=== PATIENT | female | born 1965 | race Caucasian/White ===

== ENCOUNTER 2016-05-25 06:55 | Emergency (ER) | payer SELFPAY ==
[~2016-05-25] VITALS: Ht 170.2 cm; Wt 93.0 kg
[~2016-05-25 06:55] MED LIST: LISI1TAB13
--- NOTE | 2016-05-25 07:15 | NUR ---
BB FAMILY FROM HOME FOR RIGHT SHOULDER DISLOCATED WHILE TAKING A SHOWER. PT AAO X4, AMB WITH STEADY GAIT. RIGHT SHOULDER PAIN /. PT STATES THIS HAS HAPPENED BEFORE BUT NO FOLLOWUP. INSTRUCTED PATIENT IMPORTANCE OF PHYSICAL THERAPY. PENDING MD CRATY. DAUGHTER AT BEDSIDE.
--- NOTE | 2016-05-25 07:16 | NUR ---
IV STARTED LEFT HAND 20G.
[2016-05-25] MEDS ORDERED: ONDANSETRON HCL/PF 4 MG/2 ML VIAL ONE (07:21)
[2016-05-25] MEDS ORDERED: IV NS 0.9% 1,000 ML ONE (07:21)
[2016-05-25] MEDS ORDERED: IV SET PRIMARY 1 EA INFUS.SET MC ONE (07:21)
[2016-05-25] MEDS ORDERED: MORPHINE SULFATE INJ 2 MG/ML DISP.SYRIN ONE ×2 (07:21→07:52)
[2016-05-25] MEDS ORDERED: PROPOFOL 20 ML IV ONE ×2 (07:21→08:01)
[2016-05-25] MEDS ORDERED: ONDANSETRON HCL/PF 4 MG/2 ML VIAL IV ONE (07:30)
[2016-05-25] MEDS ORDERED: MORPHINE SULFATE INJ 2 MG/ML DISP.SYRIN IV ONE ×2 (07:30→08:00)
[2016-05-25] MEDS ORDERED: IV NS 0.9% 1,000 ML BAG IV ONE (07:30)
[2016-05-25] MEDS ORDERED: PROPOFOL 200 MG/20 ML VIAL IV ONE (07:30)
--- NOTE | 2016-05-25 07:30 | NUR ---
PT SIGNED CONSENT
--- NOTE | 2016-05-25 07:36 | NUR ---
XRAY AT BEDSIDE.
--- NOTE | 2016-05-25 08:20 | NUR ---
CALLED [facility] [phone] ACADEMIC COORDINATOR [phone] ITS FERNY
--- NOTE | 2016-05-25 08:29 | NUR ---
XRAY AT BEDSIDE. SHOULDER BACK INTO PLACE, CONFIRMED BY .
[2016-05-25 08:49] VITALS: BP 118/62
--- NOTE | 2016-05-25 08:50 | NUR ---
Patient discharged to home in stable condition. Written and verbal after care instructions given. Patient verbalizes understanding of instruction.IV removed. Catheter intact and site benign. Pressure and 4x4 applied to site. No bleeding noted. prescriptions given. no further complaints. leaving via car with daughter. ambulatory with steady gait.
== END 2016-05-25 08:50 | disposition home or self-care (01) ==
LOC: ER 06:57
DX: M24.411 Recurrent dislocation, right shoulder (principal); I10 Essential (primary) hypertension; F10.10 Alcohol abuse, uncomplicated; X58.XXXA Exposure to other specified factors, initial encounter; Y93.89 Activity, other specified; Y92.89 Other specified places as the place of occurrence of the external cause; Y99.8 Other external cause status
CPT/HCPCS: 23650; 73020 ×2; 73030; 96360; 96374; 96375; 99152; 99153; 99285; A4606; J2270 ×2; J2405; J2704 ×2; J7030; Z7610

== ENCOUNTER 2016-07-17 18:58 | Inpatient (IN) | payer SELFPAY ==
[~2016-07-17] VITALS: Ht 172.7 cm; Wt 93.4 kg
--- NOTE | 2016-07-17 19:05 | NUR ---
PT A/OX4 BREATHING EFFORTLESSLY ON ROOM AIR, PT STATES SHE WA REACHING FOR SOMETHING AND FELT HER RIGHT SHOULDER POP OUT, PT ON MONITOR, FAMILY AT BEDSIDE, PT HAS BRUISING TO HER UPPER LEFT ARM, IV PLACED MD MADE AWARE WILL CONTINUE TO MONITOR.
[2016-07-17] MEDS ORDERED: MORPHINE SULFATE INJ 4 MG/ML DISP.SYRIN ONE (19:11)
[2016-07-17] MEDS ORDERED: ONDANSETRON HCL/PF 4 MG/2 ML VIAL ONE (19:11)
--- NOTE | 2016-07-17 19:14 | NUR ---
Theresa mercado in [facility] - 07/17/16 at 1919 by JUAN CALLED WILL TRIVEDI MD
[2016-07-17] MEDS ORDERED: MORPHINE SULFATE INJ 2 MG/ML DISP.SYRIN IV ONE (19:30)
[2016-07-17] MEDS ORDERED: ONDANSETRON HCL/PF - ER 4 MG/2 ML VIAL IV ONE (19:30)
[2016-07-17] MEDS ORDERED: PROPOFOL 200 MG/20 ML VIAL IV ONE ×2 (20:00→21:30)
[2016-07-17] MEDS ORDERED: PROPOFOL 20 ML IV ONE ×2 (20:10→20:54)
--- NOTE | 2016-07-17 20:32 | NUR ---
CONSCIOUS SEDATION WAS PREFORMED BY DR GOLD,, RT WAS AT BEDSIDE, PT IS A/XO4 BREATHING EFFORTLESS ON ROOM AIR, XRAY IS AT BEDSIDE TO REPEAT XRAY WILL CONTINUE TO MONITOR.
--- NOTE | 2016-07-17 21:14 | NUR ---
PAGED MANAGER RETIREMENT RAYNE SANABRIA FOR CONSULT
--- NOTE | 2016-07-17 21:19 | NUR ---
PT SHOULDER WAS STILL OUT AFTER XRAY WAS DONE, ANOTHER CONCIOUS SEDATION DONE WITH RT AND MD AT BEDSIDE, SHOULDER WAS NOT SUCCESFULLY PUT BACK IN, PT A/OX4 BREATHING EFFORTLESSLY ON ROOM AIR, VSS WILL CONTINUE TO MONITOR.
[2016-07-17] MEDS ORDERED: HYDROMORPHONE 1 MG/1 ML DISP.SYRIN IV ONE (22:30)
[2016-07-17] MEDS ORDERED: HYDROMORPHONE 1 MG/1 ML DISP.SYRIN ONE (22:46)
--- NOTE | 2016-07-17 22:52 | NUR ---
PT TRANSPORTED TO MS BED WITHOUT INCIDENT
[2016-07-17 22:59] LABS: BASOPHILS % (AUTO) 0.5 % (0.0-2.0); EOSINOPHILS % (AUTO) 0.1 % (0.0-6.0); HEMATOCRIT 43 % (33-45); HEMOGLOBIN 14.1 g/dL (11.5-14.8); LYMPHOCYTES # (AUTO) 0.9 /CMM (0.8-4.8); LYMPHOCYTES % (AUTO) 11.5 % (20.0-44.0); MEAN CORPUSCULAR HEMOGLOBIN 30 PG (26.0-33.0); MEAN CORPUSCULAR HGB CONC 33 g/dl (31.0-36.0); MEAN CORPUSCULAR VOLUME 92 fL (82-100); MONOCYTES # (AUTO) 0.5 /CMM (0.1-1.30); MONOCYTES % (AUTO) 5.9 % (2.0-12.0); NEUTROPHILS # (AUTO) 6.7 /CMM (1.8-8.9); PLATELET COUNT (AUTO) 280 /CMM (150-450); RDW COEFFICIENT OF VARIATION 13.4 (11.5-15.0); RED BLOOD CELL COUNT(AUTO) 4.68 MIL/uL (4.0-5.2); WHITE BLOOD COUNT (AUTO) 8.1 K/uL (4.3-11.0)
[2016-07-17 23:02] LABS: BILIRUBIN,TOTAL 0.5 mg/dL (0.2-1.0); CREATININE 0.8 mg/dL (0.6-1.3); POTASSIUM 3.4 mmol/L (3.5-5.1); TOTAL PROTEIN, SERUM 8.3 g/dL (6.4-8.2)
[2016-07-17 23:14] LABS: INR 0.89 (0.87-1.13); PROTHROMBIN TIME 9.4 SECS (9.5-12.7)
--- NOTE | 2016-07-17 23:15 | NUR ---
MS RN NOTE ADMITTED 51 YEARS OLD FEMALE PT FROM ER WITH THE DX OF DISLOCATED SHOULDER JOINT BY DR VERMA. A/O X 4, PT C/O PAIN IN RT SHOULDER 09/22. PT RECEIVED PT MED IN ER 1/2 HR AGO.CONTINUE TO MONITOR HER PAIN. H/L IN LT HAND #20 G INTACT AND PATENT. UNABLE TO ASSESS SKIN AT THIS TIME PT DON'T WANT TO BE MOVED OR TOUCHED DUE TO DISCOMFORT. WILL TRY LATER. VSS. ORIENTED THE PT TO HER ROOM. ADMITTING ORDERS CHECKED. CONTINUE TO MONITOR HER.
[2016-07-17] MEDS ORDERED: ACETAMINOPHEN 650 MG/SUPP.RECT RC PRN (23:30)
[2016-07-17] MEDS ORDERED: HYDROMORPHONE INJ 2 MG/ML DISP.SYRIN IV PRN (23:30)
[2016-07-17] MEDS ORDERED: ONDANSETRON HCL/PF 4 MG/2 ML VIAL IVP PRN (23:30)
[2016-07-17 23:31] VITALS: BP 148/82
--- NOTE | 2016-07-18 00:33 | NUR ---
RN PT STILL WITH PAIN 9/10 IN HER R SHOULDER, MD VERMA AT BEDSIDE, INCREASE DILAUDID FROM 0.5 TO 1 MG Q 3HRS PRN STARTING NOW WITH FIRST DOSE.
[2016-07-18] MEDS ORDERED: HYDROMORPHONE 1 MG/1 ML DISP.SYRIN ONE ×3 (00:35→06:46)
--- NOTE | 2016-07-18 00:47 | NUR ---
MS RN NOTE TRIED TO SCAN THE MED MULTIPLE TIMES WITH CHARGE NURSE RENNY BUT UNABLE. PER DR VERMA IT IS OK TO GIVE PAIN MED 1 MG NOW. PT C/O PAIN 09/22 RT SHOULDER, DILAUDID 1 MG IVP GIVEN. CONTINUE TO MONITOR HER.
[2016-07-18] MEDS ORDERED: SECONDARY IV SET 1 EA INFUS.SET MC ONE (00:50)
[2016-07-18] MEDS ORDERED: IV SET PRIMARY PUMP SET 1 EA INFUS.SET MC ONE (00:50)
[2016-07-18] MEDS ORDERED: HYDROMORPHONE INJ 2 MG/ML DISP.SYRIN IV PRN (01:00)
--- NOTE | 2016-07-18 01:00 | NUR ---
MS RN NOTE UNABLE TO SCAN THE IV BAG TRIED MULTIPLE TIMES, VERIFIED WITH CHARGE NURSE EVEN SHE TRIED MULITPLE TIMES. NURSING PREMIUM AUDITOR BROUGHT THE IV BAG TO US.
[2016-07-18] MEDS: Potassium Chloride 20 MEQ in IV D5/0.45 NACL 1,000 ML IV PRN ×2 (01:03→16:07)
--- NOTE | 2016-07-18 01:04 | NUR ---
MS RN NOTE UNABLE TO SCAN THE IV BAG TRIED MULTIPLE TIMES, VERIFIED WITH CHARGE NURSE EVEN SHE TRIED MULITPLE TIMES. NURSING PRACTICE LEAD BROUGHT THE IV BAG TO US.
[2016-07-18] MEDS: HYDROMORPHONE 1 MG/1 ML DISP.SYRIN IV PRN ×7 (03:51→22:43)
[2016-07-18 04:00] VITALS: BP 141/86
--- NOTE | 2016-07-18 06:45 | NUR ---
MS RN NOTE PT IN BED AWAKE. C/O PAIN IN RT SHOULDER 09/22. DILAUDID 1 MG IVP GIVEN. UNABLE TO DO SKIN ASSESSMENT DUE TO PT DON'T WANT TO MOVE AROUND, STATES " I AM IN PAIN ALOT AND I DON'T WANT TO MOVE AT ALL.
--- NOTE | 2016-07-18 07:37 | NUR ---
INITIAL MS RN NOTE RCVD PT AWAKE AND ALERT SHOWING NO S/O DISTRESS, C/O RIGHT SHOULDER PAIN. PT MEDICATED LESS THAN AN HOUR AGO. LEFT HAND #20 C/D/I/PATENT. NO S/O INFILTRATION OR PHLEBITIS OBSERVED. IVF INFUSING. WILL CONTINUE TO MONITOR PT FOR SAFETY AND COMFORT. CALL LIGHT WITHIN REACH. BED IN LOW AND LOCKED POSITION.
[2016-07-18 08:00] VITALS: BP 131/83
--- NOTE | 2016-07-18 08:04 | NUR ---
DRY KILN WORKER NOTE SPOKE WITH TIMOTHY BO FOR DR. RODRIGUEZ PT WILL UNDERGO CLOSED REDUCTION OF RIGHT SHOULDER DISLOCATION. CONSENT OBTAINED. PT TAKEN TO OR FOR PROCEDURE VIA BED WITH RN AND TRANSPORT AT BEDSIDE.
[2016-07-18] MEDS ORDERED: MIDAZOLAM HCL 2 MG/2ML VIAL ONE (08:32)
[2016-07-18 09:30] VITALS: BP 137/87
[2016-07-18] MEDS: PANTOPRAZOLE 40 MG VIAL IV SCH (09:40)
[2016-07-18] MEDS ORDERED: ANESTHESIA TRAY IN PYXIS 1 EA TRAY MC ONE (14:54)
[2016-07-18] MEDS ORDERED: HYDROCODONE/APAP 5/325MG 1 EACH TABLET PO PRN (15:00)
[2016-07-18 16:00] VITALS: BP 117/78
--- NOTE | 2016-07-18 19:30 | NUR ---
ENDING MED-CNC MAINTENANCE MECHANIC NOTE PT REMAINS STABLE, RESTING IN BED SHOWING NO S/O DISTRESS. PAIN MANAGED WITH CURRENT MEDS. PT'S CARE ENDORSED TO PANEL ASSEMBLER RN FOR CONTINUITY OF CARE.
--- NOTE | 2016-07-18 19:36 | NUR ---
MS RN NOTE PT IN BED AWAKE. C/O PAIN IN RT SHOULDER 09/22, DILAUDID 1 MG IVP GIVEN. VSS. NO SOB NOTED. ALSO MOVED THE PT TO DIFFERENT ROOM PER CHARGE NURSE. IVF D5 1/2 NS WITH 20 MEQ KCL INFUSING WELL, NO S/S OF INFILTRATION NOTED AT LT HAND #20 G.ALSO ABLE TO TAKE SKIN PICTURES FOR AREA WHERE PT ABLE TO MOVE. PICTURES PLACED IT IN THE CHART. SIDE RAILS UP X 2 AND CALL LIGHT WITHIN REACH. VSS. CONTINUE TO MONITOR HER.
--- NOTE | 2016-07-18 19:40 | NUR ---
MS RN NOTE RT SHOULDER IMMOBILIZER IN PLACE.
[2016-07-18 20:00] VITALS: BP 139/85
[2016-07-19] MEDS: HYDROMORPHONE 1 MG/1 ML DISP.SYRIN IV PRN ×4 (03:37→15:49)
[2016-07-19] MEDS: Potassium Chloride 20 MEQ in IV D5/0.45 NACL 1,000 ML IV PRN (03:37)
[2016-07-19 04:00] VITALS: BP 125/79
--- NOTE | 2016-07-19 06:44 | NUR ---
MS RN NOTE PT IN BED ASLEEP, EASILY AROUSABLE. NO DISTRESS OR DISCOMFORT NOTED. DENIES PAIN. IVF INFUSING WELL, NO S/S OF INFILTRATION NOTED. SIDE RAILS UP X 2 AND CALL LIGHT WITHIN REACH. WILL ENDORSE TO DAY SHIFT NURSE FOR CONTINUE TO CARE.
--- NOTE | 2016-07-19 07:15 | NUR ---
RN INITIAL NOTE PT RECEIVED IN BED, AWAKE, ALERT, ORIENTED. HAS SHOULDER PAIN AT THIS TIME. DILAUDID GIVEN. RESPIRATIONS ARE EVEN AND UNLABORED. NO S/S OF RESPIRATORY DISTRESS OR SOB. SATING WELL ON ROOM AIR. SKIN IS WARM AND DRY TO TOUCH. LEFT HAND IV SITE FLUSHED, PATENT. DRESSING C/D/I. SAFETY PRECAUTIONS IN PLACE. BED IN LOCKED, LOW POSITIONS WITH TWO SIDE RAILS UP. CALL LIGHT AND BELONGINGS WITHIN EASY REACH. WILL CONTINUE TO MONITOR.
[2016-07-19 08:00] VITALS: BP 133/80
[2016-07-19] MEDS: PANTOPRAZOLE 40 MG VIAL IV SCH (08:02)
[2016-07-19 16:00] VITALS: BP 120/70
--- NOTE | 2016-07-19 18:11 | NUR ---
RN CLOSING NOTE PATIENT DISCHARGED HOME. PAPERWORK DONE. IV SITE DISCONTINUED. DAUGHTER CAME TO PICK HER UP. INFORMED TO FOLLOW UP WITH ORTHO MD REGARDING USE OF IMMOBILIZER AND MEDICATION.
--- NOTE | 2016-07-19 18:45 | NUR ---
RN NOTE PT CALLED FROM HOME REQUESTING A RX FOR PAIN MEDICATION. [facility] ON [address]. PT PHONE # [phone]
== END 2016-07-19 18:05 | disposition home or self-care (01) | DRG 563 ==
LOC: ER 19:00 → MEDSG1 22:37
PROVIDERS: ADMIT Internal Medicine; ATTEND Internal Medicine
PROC: 0RSJXZZ Reposition Right Shoulder Joint, External Approach (ICD-10-PCS; principal; 2016-07-18 08:00)
DX: M24.411 Recurrent dislocation, right shoulder (principal); Z68.31 Body mass index [BMI] 31.0-31.9, adult; E66.9 Obesity, unspecified; E87.6 Hypokalemia; I10 Essential (primary) hypertension
CPT/HCPCS: 36415; 71010-TC; 73020; 73030-TC; 80053-TC; 85025-TC; 85730-TC; 87081-TC; A4565; A4606; C9113; J1170; J2250; J2270; J2405; J2704; J3480; J3490; Z7610

== ENCOUNTER 2016-08-04 21:57 | Emergency (ER) | payer SELFPAY ==
[~2016-08-04] VITALS: Ht 172.7 cm; Wt 92.5 kg
--- NOTE | 2016-08-04 22:10 | NUR ---
PT BIB [facility] FOR ETOH INTOX. PT WAS FOUND IN THE STREET BUT PT TELLS ME SHE WAS AT HOME WHEN 911 WAS CALLED. HER STORY THEN CHANGED STATING SHE CALLED 911 BUT DOES NOT KNOW WHY. PER EMT RAÚL, PT INITIALLY STATED SHE WAS NOT AT HOME WHEN 911 WAS CALLED. DENIES PHYSICAL COMPLAINTS. NAD NOTED. PT SAYING SHE WANTS TO GO HOME. PER MD, PLACE ON 1 POINT RESTRAINT. AMBULATED WITH STAGGERING GAIT. IN ER BED 10 ON MONITOR.
--- NOTE | 2016-08-04 23:03 | NUR ---
PT ATTEMPTED TO LEAVE ER, HAVING SELF-EXTRICATED FROM 1 POINT RESTRAINT. AMBULATORY WITH UNSTEADY GAIT. ASSISTED BACK TO BED AND REPLACED RESTRAINT. PROVIDED WITH WARM BLANKET FOR COMFORT. EXPLAINED PLAN OF CARE TO PT, TO WHICH SHE KEPT SAYING "I NEED TO GO. I NEED TO GO HOME."
--- NOTE | 2016-08-04 23:54 | NUR ---
MULTIPLE ATTEMPTS MADE TO CONTACT PTS "EX" WHO SHE STATES SHE LIVES WITH, NAMED GERARD AT [phone] BY MYSELF ON HOSPITAL PHONE AND PT'S DAUGHTER JAMES WHICH PT USED OWN CELL PHONE TO DO. NAD NOTED. ALL NEEDS ATTENDED TO.
--- NOTE | 2016-08-04 23:56 | NUR ---
REPORT GIVEN TO MAGALY TAFOYA RN FOR RENEE.
--- NOTE | 2016-08-05 00:38 | NUR ---
AWAKE. DENIES ANY SX'S AT THIS TIME. AWAITING RIDE.
--- NOTE | 2016-08-05 01:22 | NUR ---
RESTING WITH NO S/S OF DISTRESS. RESP EVEN AND UNLABORED.
--- NOTE | 2016-08-05 03:23 | NUR ---
REMANINS RESTING WITH NO S/S OF DISTRESS. RESP EVENA ND UNLABORED.
--- NOTE | 2016-08-05 04:13 | NUR ---
Note jess in EDM - 08/05/16 at 0420 by FRANCOIS Patient discharged to home in stable condition. Denies any sx's at [facility] time. Written and verbal after care instructions given. Patient verbalizes understanding of instruction. Ambulatory with a steady gait
[2016-08-05 04:18] VITALS: BP 116/66
--- NOTE | 2016-08-05 04:19 | NUR ---
Patient discharged to home in stable condition. Written and verbal after care instructions given. Patient verbalizes understanding of instruction. PT ambulatory with a steady gait VITAL SIGNS WITHIN NORMAL LIMITS.
== END 2016-08-05 04:19 | disposition home or self-care (01) ==
LOC: ER 21:59
DX: F10.129 Alcohol abuse with intoxication, unspecified (principal); I10 Essential (primary) hypertension
CPT/HCPCS: 82962-TC; A4606; Z7610